=== PATIENT | female | born 1950 | race Caucasian/White ===

== ENCOUNTER 2016-08-20 06:16 | Day surgery (SDC) | payer OTHER ==
[2016-08-13 17:00] VITALS: BMI 17.3
[2016-08-20] MEDS ORDERED: PROPOFOL 20 ML ONE ×4 (06:59)
[2016-08-20] MEDS ORDERED: MIDAZOLAM HCL 2 MG/2 ML SINGLE DOSE VIAL ONE (06:59)
[2016-08-20] MEDS ORDERED: OXYMETAZOLINE 0.05% NASAL SOLUTION 15 ML BOTTLE NS ONE (07:32)
[2016-08-20] MEDS ORDERED: TETRACAINE 0.5% OPHTH SOLN 2 ML BOTTLE ONE (07:33)
[2016-08-20] MEDS ORDERED: THROMBIN (BOVINE) 5,000 UNIT VIAL TP ONE (07:33)
[2016-08-20] MEDS ORDERED: LIDOCAINE 1%-EPI 1:100,000 30 ML MDV IJ ONE (07:33)
[2016-08-20] MEDS ORDERED: POVIDONE-IODINE 5% OPHTHALMIC PREP 30 ML SOLUTION ONE (07:33)
[2016-08-20] MEDS ORDERED: BUPIVACAINE HCL/PF 0.5% (5MG/ML) 10 ML VIAL ONE (07:33)
[2016-08-20] MEDS ORDERED: BACITRACIN 3.5 GM OPTHALMIC OINT TUBE ONE (07:33)
[2016-08-20] MEDS ORDERED: ONDANSETRON 4 MG/2 ML VIAL IVPUSH PRN (07:35)
[2016-08-20] MEDS ORDERED: ACETAMINOPHEN 325 MG TABLET (FP) PO PRN (07:35)
[2016-08-20] MEDS ORDERED: ceFAZolin SODIUM 1 GM VIAL ONE (07:58)
[2016-08-20] MEDS ORDERED: SUCCINYLCHOLINE CHLORIDE 200 MG/10 ML VIAL ONE (08:09)
[2016-08-20] MEDS ORDERED: PHENYLEPHRINE HCL 10 MG/1 ML SINGLE DOSE VIAL ONE (08:11)
[2016-08-20] MEDS ORDERED: ONDANSETRON 4 MG/2 ML VIAL ONE (08:20)
[2016-08-20] MEDS ORDERED: DEXAMETHASONE SOD PHOSPHATE 4 MG/1 ML VIAL ONE (08:20)
[2016-08-20] MEDS ORDERED: BSS (NA/CA/MG/K) BALANCED SALT SOLUTION OPHTH SOLN 15 ML BOTTLE ONE (08:26)
[2016-08-20 10:34] VITALS: TEMP 98
[2016-08-20 11:08] VITALS: BP 112/70; PULSE 61
[2016-08-20] MEDS ORDERED: MITOMYCIN 0.02% EYE DROPS - 2ML VIAL IO SCH (11:30)
--- NOTE | 2016-08-20 22:34 | OP ---
DATE OF OPERATION: 08/20/2016 PREOPERATIVE DIAGNOSIS: Recurrent nasal lacrimal duct obstruction, left. POSTOPERATIVE DIAGNOSIS: Recurrent nasal lacrimal duct obstruction, left. PROCEDURE: 1. External dacrocystorhinostomy. 2. Removal of scar tissue. 3. Lacrimal sac biopsy. 4. Silicone intubation, left lacrimal cyst. 5. Topical Mitomycin. 6. Endoscopy. SURGEON: Elizabeth Montgomery MD ANESTHESIA: Local with sedation. COMPLICATIONS: None. ESTIMATED BLOOD LOSS: 5-10 mL. DESCRIPTION OF PROCEDURE: The patient was brought to the operating room and placed on the operating room table. Vital signs were monitored by Anesthesia. were placed on both eyes. One eye was marked with a left tear drop. Timeout was performed. Intravenous sedation was administered. A 50/50 mixture of 2% Xylocaine with 1:100,000 epinephrine and 0.5% Marcaine was injected into the anterior lacrimal crest area tear trough nasal through the upper and lower lids, dorsonasal branch and supraorbital nerve. Massage provided hemostasis. The middle meatus and the external nares and septum were also injected with 2% Xylocaine with 1:100,000 epinephrine under direct visualization and the left nose was packed with cottonoids moistened with Afrin. The patient was prepped and draped in the usual sterile fashion, exposing both eyes. An incision was made in the tear trough and this was carried down to the anterior lacrimal crest. Periosteum was then reflected laterally, exposing the prior internal fistulization from the prior DCR. This was gently teased apart and a nice opening into the nose was noted. A small amount of bone excision was performed with Kerrisons and the upper and lower puncta were dilated and intubated with probes, tenting the medial wall of the sac medially, which was incised with a 12 blade and then the anterior and posterior lacrimal sac flaps were created and the lacrimal sac was widely opened. The internal common canaliculus was dilated to remove any scar tissue whatsoever. Upper and lower puncta intubated the common canaliculus easily with probes. The lacrimal sac was biopsied as was the scar tissue removed from the scar. Posterior lacrimal sac flap was lifted posteriorly. The anterior lacrimal sac flap was lifted out of the wound and the nose was packed with small cottonoids, quarter-inch, and then 0.2 mg/mL Mitomycin was placed cotton pledgets into the sac and left there for 3 minutes, after which they were removed. The area was copiously rinsed, as was the eye, with 3 changes of BSS solution. The system was intubated with [employer] canalicular intubation probes and retrieved through the nose with a cough drop, moving the silicone more freely through the system. The anterior lacrimal sac flap was secured to the periosteum anterior to the osteotomy with mattressed interrupted 4-0 chromic sutures and then the subcuticular tissue with 6-0 chromic and the skin with interrupted 6-0 plain in plastic technique. The stents were removed from the probes and the stent was tied with locking knots and secured in the left external nare with a single 6-0 Prolene with minimal tension on the loop in the left medial canthus. The scope was introduced, as was suction. There was good hemostasis and there was no impingement on the osteal site from the septum that could be seen. The tubes were in good position. Afrin was sprayed in the nose. was placed on the sutures and the patient was taken to the recovery room in stable condition. ELIZABETH MONTGOMERY M.D. [id number]
--- NOTE | 2016-08-21 11:21 | PATH ---
Surgical Pathology Report Patient Name: JUAN F WHITLEY [facility]. Rec. #: [id number] /Age/Gender: 1950 (Age: 65) / F Account: [id number] Location: [facility] Taken: 08/20/2016 Received: 08/20/2016 Reported: 08/21/2016 Physicians: Ulises Ramirez Specimen(s) Received LEFT LACRIMAL SAC BIOPSY Clinical History Blocked tear duct left Final Diagnosis LEFT LACRIMAL SAC, BIOPSY: FIBROUS TISSUE WITH CHRONIC INFLAMMATION. NO INTACT EPITHELIAL LINING IDENTIFIED. Electronically Signed Eric Freeman M.D. Gross Description Received in formalin, labeled "left lacrimal sac biopsy" is a wilder, irregular portion of soft tissue measuring 0.1 cm. in greatest dimension. The specimen is submitted in toto in one cassette. 08/20/201608/20/2016
== END 2016-08-20 10:45 | disposition home or self-care (01) ==
LOC: FASU 06:16
PROVIDERS: ATTEND Ophthalmology
PROC: [UNRECOGNIZED PROCEDURE] (principal; 2016-08-20 08:05)
DX: H04.552 Acquired stenosis of left nasolacrimal duct (principal)
CPT/HCPCS: 88304-TC; 94760